=== PATIENT | female | born 1955 | race Caucasian/White ===

== ENCOUNTER 2017-02-23 09:03 | Day surgery (SDC) | payer OTHER ==
[~2017-02-23] VITALS: Ht 160 cm; Wt 70.0 kg
[~2017-02-23 09:03] MED LIST: ASPI81 PO; GLIM4 PO; LISI-662 PO; METF500T4 PO; OMEP20 PO; PROP20 PO; SODIUM CHLORIDE 0.9% 1,000 ML IV ONE; TRAM50TA4 PO
[2017-02-23] MEDS ORDERED: SUCCINYLCHOLINE CHLORIDE 20 MG/ML 10 ML VIAL IVP ONE (09:04)
[2017-02-23] MEDS ORDERED: METOCLOPRAMIDE HCL 5 MG/ML 2 ML VIAL IVP ONE (09:04)
[2017-02-23] MEDS ORDERED: LIDOCAINE HCL 2% 5 ML JELLY TP ONE (09:04)
[2017-02-23] MEDS ORDERED: PROPOFOL 1% 20 ML VIAL IVP ONE (09:04)
[2017-02-23] MEDS ORDERED: GLYCOPYRROLATE 0.2 MG/ML VIAL IM ONE (09:04)
[2017-02-23] MEDS ORDERED: ONDANSETRON HCL 4 MG/2 ML VIAL IVP ONE (09:04)
[2017-02-23 09:52] LABS: GLUCOSE,POINT OF CARE 254 MG/DL (70-110)
[2017-02-23] MEDS ORDERED: FentaNYL CITRATE-PF 100 MCG/2 ML VIAL IVP PRN (11:15)
[2017-02-23] MEDS ORDERED: OXYGEN THERAPY IH SCH (11:15)
== END 2017-02-23 12:35 | disposition home or self-care (01) ==
LOC: SURGERY 09:03
PROVIDERS: ATTEND Internal Medicine Gastroenterology
DX: Z13.810 Encounter for screening for upper gastrointestinal disorder (principal); K76.6 Portal hypertension; K31.89 Other diseases of stomach and duodenum; I85.00 Esophageal varices without bleeding; K21.0 Gastro-esophageal reflux disease with esophagitis; E11.9 Type 2 diabetes mellitus without complications; K74.60 Unspecified cirrhosis of liver; I10 Essential (primary) hypertension; Z79.899 Other long term (current) drug therapy
CPT/HCPCS: 43235; 82962; 93005; J0330; J2405; J2704; J2765; J3490; J7030